=== PATIENT | male | born 1960 | race Caucasian/White ===

== ENCOUNTER 2020-12-02 11:06 | Emergency (ER) | payer OTHER, SELFPAY ==
[2020-12-02] VITALS (16 sets, daily range): BP systolic 139–187; BP diastolic 76–117; PULSE 51–90; RESP 14–31; TEMP 36.8; O2SAT 98–100
--- NOTE | ~2020-12-02 | US_ITS ---
EXAMINATION: US abdomen limited DATE: 12/02/2020 14:57 INDICATION: Nausea. Cholelithiasis. TECHNIQUE: Multiple grayscale and Doppler ultrasound images of the abdomen were obtained. COMPARISON: CT abdomen and pelvis 12/02/2020 FINDINGS: The visualized portions of the head and body of the pancreas are normal. There is diffuse h epatic steatosis. No liver surface nodularity. There is normal flow in main portal vein. The gallblad arjun is distended and contains gallstones. Gallbladder wall thickening is noted. There was no sonograp hic Perez sign. The common duct is normal and measures 4 mm. IMPRESSION: 1. Distended gallbladder with cholelithiasis and gallbladder wall thickening, but no sonographic Murp hy sign, likely acute cholecystitis. 2. Diffuse hepatic steatosis. Reviewed, dictated and finalized at location A. IMPRESSION: 1. Distended gallbladder with cholelithiasis and gallbladder wall thickening, b ut no sonographic Perez sign, likely acute cholecystitis. 2. Diffuse hepatic steatosis.
--- NOTE | ~2020-12-02 | XR_ITS ---
EXAMINATION: XR chest 1V portable 12/02/2020 11:27 INDICATION: Shortness of breath. Upper abdominal pain. PROCEDURE: AP portable chest COMPARISON: No prior studies for comparison. FINDINGS: The lungs are clear. The cardiomediastinal silhouette is within normal limits. There are no pleural effusions. There is no pneumothorax suspected. IMPRESSION: 1: NO ACUTE CARDIOPULMONARY DISEASE. Reviewed, dictated and finalized at location A.
--- NOTE | ~2020-12-02 | CT_ITS ---
EXAMINATION: CT abdomen pelvis w con DATE: 12/02/2020 13:22 INDICATION: Abdominal pain TECHNIQUE: Computed tomography (CT) of the abdomen and pelvis was performed with 150 cc Omnipaque 350 intravenous contrast. The dose-length product was 3158.19 mGy-cm. Automated exposure control and ite rative reconstruction technique were employed. COMPARISON: None. FINDINGS: Lung bases are unremarkable. No significant pleural or pericardial effusion. Heart size is normal. No significant vascular abnormality. Fatty infiltration of the liver. Gallbladder is mildly distended and contains gallstones. There are calcified granulomas of the spleen. The pancreas, adrenal glands and right kidney are unremarkable. There are subcentimeter hypodense lesions of the left kidney, most likely benign cysts. There is an accessory splenule. Nonobstructive bowel gas pattern. Colonic diver ticulosis without evidence for diverticulitis. No lymphadenopathy. No evidence for aortic aneurysm. S pleen small fat-containing left inguinal hernia. No abnormal pelvic masses or fluid collections. Mild lumbar spondylosis. IMPRESSION: 1. Distended gallbladder with cholelithiasis. Reviewed, dictated and finalized at location A.
--- NOTE | 2020-12-02 11:10 | ECG_ITS ---
Measurements Intervals [place] Rate: 46 P: 4 OR: 179 QRS: 31 QRSD: 92 T: 58 QT: 447 QTc: 393 Interpretive Statements SINUS BRADYCARDIA BORDERLINE ST-T WAVE ABNORMALITY- HIGH LATERAL LEADS BASELINE WANDER- V3-V6 ABNORMAL ECG Electronically Signed On 12-02-2020 14:38:09 CDT by Joseph Gonzalez D.O.
[2020-12-02 11:34] LABS: Basophils Absolute Auto 0.1 K/mm3 (0.0-0.1); Basophils Percent Auto 0.4 % (0.2-1.2); Eosinophils Absolute Auto 0.1 K/mm3 (0-0.3); Eosinophils Percent Auto 0.4 % (0-4.4); Hematocrit 47.2 % (42.0-52.0); Hemoglobin 15.9 g/dL (14.0-18.0); Immature Granulocyte Absolute 0.06 K/mm3 (0.00-0.031); Immature Granulocyte Percent A 0.5 % (0-0.5); Lymphocytes Absolute Auto 1.42 K/mm3 (0.9-3.2); Lymphocytes Percent Auto 12.1 % (18.3-44.2); Mean Corpuscular HGB Conc 33.7 g/dl (32-36); Mean Platelet Volume 9.5 fl (7.4-10.4); Monocytes Absolute Auto 0.5 K/mm3 (0.1-0.6); Monocytes Percent Auto 4.3 % (2.6-8.5); Neutrophils Absolute Auto 9.6 K/mm3 (1.3-6.7); Neutrophils Percent Auto 82.3 % (45.5-73.1); Platelet Count Result 226 k/mm3 (150-375); Red Blood Count 5.13 M/mm3 (4.6-6.20); Red Cell Distribution Width 12.9 % (11.5-14.5); White Blood Count 11.7 K/mm3 (4.5-10.0)
[2020-12-02 11:48] LABS: D Dimer 0.33 ug/mL (<0.48)
[2020-12-02 11:53] LABS: Alanine Aminotransferase 25 U/L (4-50); Albumin Level 4.4 g/dL (3.5-5.1); Alkaline Phosphatase 127 U/L (38-126); Anion Gap 7 mmol/L (8-16); Aspartate Amino Transferase 30 U/L (17-59); Bilirubin,Total 0.6 mg/dL (0.2-1.3); Blood Urea Nitrogen 15 mg/dL (9-20); Calcium 9.5 mg/dL (8.4-10.2); Carbon Dioxide 22 mmol/L (22-30); Chloride 108 mmol/L (98-107); Estimated CRCL calculation 67 ml/min; Estimated Glomerular Filt Rate 51; Glucose 146 mg/dL (65-110); Lipase 97 U/L (23-300); Potassium 4.3 mmol/L (3.4-5.0); Sodium 137 mmol/L (137-145)
--- NOTE | 2020-12-02 12:31 | ED.ABDPAIN ---
HPI - Abdominal Pain General Chief Complaint: Abdominal Pain <Susie Dai PA-C - Last Filed: 12/02/20 21:52> Stated Complaint: ABD Pain <Susie Dai PA-C - Last Filed: 12/02/20 21:52> Source: patient and EMS <DELROY Juarez Last Filed: 12/02/20 21:52> Mode of arrival: EMS <DELROY Juarez Last Filed: 12/02/20 21:52> Limitations: no limitations <DELROY Juarez Last Filed: 12/02/20 21:52> History of Present Illness HPI narrative: Patient presents with chief complaint of upper abdominal pain that began this morning at approximately 5:30 AM. Patient reports he also has feels mildly short of breath. Patient reports feelings of nausea without vomiting. Patient reports he cannot describe the sensation of the abdominal pain. He denies any chest pain, fevers, chills, vomiting, diarrhea, constipation. Patient was given Zofran in route by EMS. Patient states that he does not have a primary care provider and denies any chronic medical conditions would be known. Patient is a pack-a-day smoker. Patient has not received his Covid vaccination. Patient denies any abdominal surgeries. <Susie Dai PA-C - Last Filed: 12/02/20 21:52> Related Data Allergies/Adverse Reactions: Allergies Allergy/AdvReac Type Severity Reaction Status Date / Time No Known Allergies Allergy Verified 12/05/20 08:46 <Susie Dai PA-C - Last Filed: 12/02/20 21:52> Review of Systems Review of Systems: CONSTITUTIONAL: Denies fever, chills, or sweats. EYES: Denies visual changes, redness, or discharge. ENT: Denies rhinorrhea, congestion, sore throat, or otalgia. CARDIOVASCULAR: Denies chest pain, palpitations, or edema. RESPIRATORY: Reports mild dyspnea Denies cough GASTROINTESTINAL: Reports upper abdominal pain, nausea Denies vomiting or diarrhea. GENITOURINARY: Denies dysuria or hematuria. SKIN: Denies rash or itching. MUSCULOSKELETAL: Denies back pain, joint pain, or myalgia. NEUROLOGIC: Denies headache, numbness, dizziness, or weakness. PSYCHIATRIC: Denies anxiety or depression. <Susie Dai PA-C - Last Filed: 12/02/20 21:52> PMFSH Past Medical History Medical History: Medical History Kidney stones <Susie Dai PA-C - Last Filed: 12/02/20 21:52> Surgical History Surgical History: Surgical History History of appendectomy <Susie Dai PA-C - Last Filed: 12/02/20 21:52> Family History Family History: Family History Mother , age 77 Lung cancer <Susie Dai PA-C - Last Filed: 12/02/20 21:52> Social History Social History: Social History Smoking packs per day: 1 Smoking cigarettes per day: 20.0 Years smoked: 40 Smoking pack-years: 40.00 Smoking status: Current every day smoker Tobacco type: cigarettes Alcohol intake: never Living arrangements: alone Occupation/Education: occupation 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 HEAD: Normocephalic, atraumatic. EYES: PERRLA and EOMI. ENT: Nares clear, no rhinorrhea or epistaxis. Mucous membranes moist. Oropharynx without tonsillar hypertrophy exudate or other lesions. Bilateral TMs pearly cruz nonbulging. No hemotympanum. CHEST: Clear to auscultation. No respiratory distress. No wheezes rales or rhonchi. Mild tachypnea. HEART: Regular rate and rhythm. No murmur heard. Normal peripheral pulses. ABDOMEN: Soft, nontender, nondistended, normal active bowel sounds. EXTREMITIES: Normal range of motion. No edema. SKIN: Warm, dry, no rash. NEURO: No focal deficits. Alert and oriented
[2020-12-02 12:46] LABS: Troponin I < 0.012 ng/mL (0.000-0.034)
[2020-12-02] MEDS: METOCLOPRAMIDE HCL INJ 10 MG/2 ML VIAL IV PUSH (15:07)
[2020-12-02] MEDS: MORPHINE SULFATE (*CRX) 2 MG/ML INJ IV PUSH (15:07)
== END 2020-12-02 16:10 | disposition home or self-care (01) ==
PROVIDERS: Physician Assistant; Emergency Provider Emergency Medicine
DX: K80.20 Calculus of gallbladder without cholecystitis without obstruction (principal); R10.13 Epigastric pain
CPT/HCPCS: 36415; 71045; 74177; 76705; 80053; 83690; 84484; 85025; 85380; 93005; 96374; 96375; 99284; J2270; J2765; Q9967

== ENCOUNTER 2021-07-03 01:39 | Day surgery (SDC) | payer OTHER, SELFPAY ==
[2021-07-01 13:18] VITALS: BMI 35.6
--- NOTE | 2021-07-01 13:20 | SUR.PREOP ---
Report to the Outpatient Waiting Room, entrance under the green pavilion located off [facility], at time __1000 on date _07/03/21 . OR Time: __1200 . - You and your visitor will be asked a series of questions to screen for COVID 19 for your protection. - Only one visitor is allowed at this time. - The patient visitor is requested to leave or wait in car when not with patient. - A mask is required within the hospital. Patients may have clear liquids (water, carbonated beverages, clear teas, apple juice) until 3 hours prior to surgery with a maximum of 20 ounces. - No food from midnight until time of surgery - Infants may have breast milk until 4 hours before surgery, infant formula 6 hours prior to surgery. - Children will be allowed to drink immediately following surgery. If applicable, please bring a bottle or sippy cup to assist with drinking. Juice, water, soda, and popsicles are readily available. For infants on formula, please bring formula the day of surgery. Pacifiers are allowed. Take the following medications with a SIP of water the morning of surgery: __n/a Medications to discontinue per physician n/a Date to take last dose n/a Please no make-up, nail nepalese, hairspray, perfume, deodorant, or body powder the day of surgery. No jewelry (including any body piercings) or valuables the day of surgery, leave them at home. Please take a shower or bath the night before, or the morning of, surgery with an antibacterial soap. Wear comfortable, loose fitting clothing. Children are encouraged to wear pajamas. HIBICLENS SHOWER AM OF SURGERY. - Jewelry must be removed prior to entering the operating room. Rings and piercings that are not removed may be cut off. - The hospital will not accept responsibility for valuables. - Please leave all valuables, including medications, at home the day of surgery. If you are going home after surgery, a licensed grab driver must drive you home. - NO public transportation without another adult. - We recommend that an adult stay with you for 24 hours following discharge. - We also recommend that you do not drive, make important decision, drink alcoholic beverages, or take any drugs that were not prescribed by your health care provider for at least 24 hours after your discharge time. For Pediatric surgeries, we recommend two adults accompany the child home (only one inside the building at this time). Follow any additional instructions given to you from your surgeon. If you or anyone in your household have experienced Covid symptoms in the past week, please notify your surgeon or the nurse liaison at the phone number below for possible testing. Telephone instructions given to madeline payne and asked if any additional questions and then verbalized understanding. Patient advised to call surgeon office or pre surgery nurse liaison [phone] if any additional questions.
[2021-07-03] VITALS (10 sets, daily range): BP systolic 124–160; BP diastolic 69–89; PULSE 67–82; RESP 15–76; TEMP 36.4–37; O2SAT 95–100
[2021-07-03] MEDS: ACETAMINOPHEN 500 MG TABLET 1000 MG PO (10:20)
[2021-07-03] MEDS: LACTATED RINGERS 1,000 ML 30 ML IV CONT ×2 (11:03→14:10)
[2021-07-03] MEDS: KETOROLAC 15 MG/ML VIAL (*BKC) IV PUSH (11:05)
--- NOTE | 2021-07-03 11:08 | WPDANESEPPF ---
Anes - Initial Pre Proc Eval Procedure: Operation Date: 07/03/21 12:00 Proposed Procedures p Laparoscopic Cholecystectomy - Yaneth Claros MD Date/Time: 07/03/21 11:08 Surgeon: Yaneth Claros MD Pre Op Diagnosis: Chronic Cholecystitis with Stones Patient Data Age: 60 Gender: M Height: 1.85 m Weight: 122.3 kg Last Vital Signs Temp 36.4 C L 07/03/21 11:05 Pulse 82 07/03/21 11:05 Resp 16 07/03/21 11:05 BP 144/71 H 07/03/21 11:05 Pulse Ox 99 07/03/21 11:05 Allergies Allergy/AdvReac Type Severity Reaction Status Date / Time No Known Allergies Allergy Verified 07/03/21 10:16 Home Medications Medication Instructions Recorded Confirmed Type No Home Medications 06/25/21 07/03/21 History Laboratory Tests 07/03/21 10:59 Total Bilirubin Pending Direct Bilirubin Pending AST Pending ALT Pending Alkaline Phosphatase Pending Total Protein Pending Albumin Pending Amylase Pending Lipase Pending Patient hx anesthesia problems: none Family hx anesthesia problems: none Results Review: All pre-operative results and documents have been reviewed as part of the pre-operative evaluation. 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 Informed Consent: The patient's anesthetic plan and its attendant risks and benefits were discussed with the patient/family/POA. Questions were solicited and answers provided to the satisfaction of the patient/family/POA.
--- NOTE | 2021-07-03 11:11 | WPDHPUPDATE1 ---
History and Physical Update Update Date/Time: 07/03/21 11:11 History and Physical has been reviewed, including an updated exam of the patient. There are NO changes in the patient's condition. Risks, benefits, and alternatives have been discussed and questions answered. Patient agrees to proceed with procedure.
[2021-07-03 11:17] LABS: Alanine Aminotransferase 24 U/L (6-50); Albumin Level 4.1 g/dL (3.5-5.1); Alkaline Phosphatase 92 U/L (38-126); Amylase 62 U/L (30-110); Aspartate Amino Transferase 28 U/L (17-59); Bilirubin,Total 1.2 mg/dL (0.2-1.3); Lipase 63 U/L (23-300)
[2021-07-03] MEDS: ceFAZolin 3 GM/D5W 100 ML 100 ML IVPB (12:59)
[2021-07-03] MEDS: LIDO 1%/EPINEPHRINE/PF 1:200,000 30 ML VIAL XX (13:24)
--- NOTE | 2021-07-03 14:08 | W.PM.PROC2 ---
Procedure Note - Detailed Date of Procedure 07/03/21 Pre-op Diagnosis Chronic Cholecystitis with Stones Post-op Diagnosis Same Procedure Performed Laparoscopic cholecystectomy Surgeon Yaneth Claros MD Anesthesia General Indications 60 y/o M c chronic cholecystitis, cholelithiasis Findings Intrahepatic gallbladder with moderate inflammation, cholelithiasis, encapsulated in fat Description of Procedure The patient was taken to the operating room placed in the supine position. After adequate induction of general anesthesia, the patient was prepped and draped in normal sterile fashion. A time-out was then performed to verify the patient's identity as well as the procedure being performed. I then made a 5 mm incision in the infraumbilical region. Through this, a Veress needle was placed into the peritoneal cavity and CO2 gas was then insufflated. After adequate pneumoperitoneum was achieved, the Veress needle was removed and a 5 mm optiview trocar was placed through this incision under direct visualization. I then placed the laparoscope through this trocar site and under direct visualization placed a further 12 mm subxiphoid port as well as 2 additional 5 mm ports in the right upper abdomen. The gallbladder was then identified and was noted to be moderately inflamed, distended, and full of gallstones. I was able to place a grasper at the dome of the gallbladder and this was retracted anterior and cephalad up over the liver. A 2nd retractor was then placed at the infundibulum and retracted laterally, this allowed visualization of the triangle of Calot. The gallbladder was noted to be encapsulated with intra-abdominal fat, especially around the area the infundibulum. Using very careful dissection, I was able to dissect off this fat. I then was able to visualize the cystic duct in its entirety from its proximal insertion into the gallbladder, to its distal junction with the common hepatic/common bile duct junction. At this point, I carefully skeletonized the proximal cystic duct with the [place] dissector. I then clipped and transected the proximal cystic duct. Next I visualized the cystic artery. Again the artery was skeletonized, clipped, and transected. I then used the Bovie cautery to take down the peritoneal attachments of the gallbladder off the liver bed. This was somewhat difficult given the amount of inflammation in the posterior space. Once the gallbladder specimen was completely detached, an endo-pouch was placed through the 12 mm port site. I then placed the gallbladder specimen into the Endo pouch and removed the endo-pouch from the 12 mm port site. The specimen will now be sent to pathology for further review. I then copiously irrigated the right upper quadrant. Some mild oozing was noted in the liver bed and this was controlled with the bovie cautery. Hemostasis was noted in the liver bed, the clips were noted to be in good position on both the cystic duct stump and the cystic artery stump. No other pathology was noted in the right upper quadrant. I then moved the laparoscope to the subxiphoid port. No iatrogenic injury or other pathology was noted in the lower abdomen. I then closed the 12 mm trocar site under direct visualization using the Beltran cone and 0 Vicryl suture. At this point, the abdomen was desufflated and all ports removed. All port sites were then closed with 4.O Monocryl subcuticular sutures. Dermabond was placed on each incision. The patient tolerated the procedure well, was extubated in the operating room postoperative and will be transferred to the recovery room in stable condition Estimated Blood Loss 10 Drains No Packing No Pathology Yes Complications No immediate complications Condition Stable Disposition PACU
[2021-07-03] MEDS: ONDANSETRON INJ 4 MG/2 ML VIAL IV PUSH (14:57)
[2021-07-03] MEDS: oxyCODONE HCL (*CRX) 5 MG TAB IR PO (16:00)
== END 2021-07-03 17:00 | disposition home or self-care (01) ==
PROVIDERS: Visit Provider Surgery
PROC: 0FT44ZZ Resection of Gallbladder, Percutaneous Endoscopic Approach (ICD-10-PCS; CPT 47562; principal; 2021-07-03 12:00)
DX: K80.10 Calculus of gallbladder with chronic cholecystitis without obstruction (principal); F17.210 Nicotine dependence, cigarettes, uncomplicated; E66.9 Obesity, unspecified; Z68.35 Body mass index [BMI] 35.0-35.9, adult
CPT/HCPCS: 47562; 36415; 80076; 82150; 83690; 86850; 86900; 86901; 88304; A9270; J0330; J0690; J1100; J1170; J1885; J2250; J2405; J2704; J2710; J3010; J7030; J7120